=== PATIENT | female | born 1990 | race Caucasian/White ===

== ENCOUNTER 2021-04-01 09:03 | Emergency (ER) | payer MEDICAID, SELFPAY ==
[2021-04-01 09:05] VITALS: BP 121/76; PULSE 93; RESP 19; TEMP 37.1; O2SAT 98; BMI 21.1
--- NOTE | 2021-04-01 09:48 | HMH.EDUTC ---
[facility] [place] Disposition Clinical Impression: Viral syndrome, Encounter for laboratory testing for COVID-19 virus Disposition: Home, Self-Care Condition on Discharge: Good Instructions: DI for COVID-19 (Suspected or Confirmed ), Coronavirus Disease 2019, Preventing the Spread of Coronavirus Discharge Instructions Additional Instructions: *Monitor Temp, Over the counter Motrin or Tylenol as directed/as needed Tylenol every 4 hours and Motrin every 6 hours (as long as your family doctor has told you that you can take it) for fever or pain. and straight to ER if unable to lower temp less than 101.0 after medication given *Warm salt water gargles may help to soothe the throat *Throat Lozenges *Warm fluids like tea with honey may help to soothe the throat *Sleep elevated *Humidifier/Vaporizer *Flonase 2 sprays in each nostril daily but be aware that it may take 2-3 days before you notice improvement Your throat swab was sent for culture. Those results are typically sent to your primary care. Be sure to follow up in 2-3 days with your family doctor/primary care physician if no improvement so they can review those result and treat if necessary. If you don?t have a primary care doctor, I recommend you get one but in the mean time, you will have to return to a walk in clinic Follow up IMMEDIATELY for new or worsening symptoms or no Noticeable improvement over the next 48-72 hours. 911 for difficulty breathing or swallowing You were tested for today for COVID19 your test result should be back in the next 24-48 hours, you may call to the [facility] to see if your test results are back in the next 48 hours [phone] [facility] hours are 9am-9pm You was given a handout with instructions for Self Quarantine and Self isolation for while you wait on test results and what to do if they are positive If you are positive the Health Dept will be contacting you also Make sure to take your Vitamins Vit. C Vit D and Zinc if you can take them Prescriptions: Fluticasone Propionate [Flonase 50mcg nasal spray 16gm] 1 spr NS DAILY #1 ml Transmission Status: Pending to [facility] #[id number] Referrals: Kofi Cain [Primary Care Provider] - As needed Forms: Work/School Release Time of Disposition: 09:53 Medical Decision Making - Miguel Inquiry Pt receiving controlled substance: No Miguel was queried for this patient: No Vital Signs: 04/01/21 09:05 Temperature 98.7 F Temperature Source Oral Pulse Rate [Right Brachial] 93 H Respiratory Rate 19 Blood Pressure [Right Arm] 121/76 Blood Pressure Mean [Right Arm] 91 Blood Pressure Source [Right Arm] Automatic Cuff Blood Pressure Position [Right Arm] Sitting 02 Sat by Pulse Oximetry 98 Oxygen Delivery Method Room Air Orders (Tests/Meds): ORDERS Category Date Time Status Covid-19 Nasal PCR ([facility]) Routine Lab 04/01/21 09:24 Received [facility] [place] HPI - General Stated complaint: Covid test Time Seen by Provider: 04/01/21 09:48 Mode of Arrival: Ambulatory Source of Information: Patient Limitations: No Limitations Description of Symptoms (Recalled from Triage Doc. by RN): PATIENT C/O FEVER, SORE THROAT, LOSS OF TASTE, AND MUSCLE ACHES X 3 DAYS. EXPOSED TO COVID RECENTLY HEENT Symptoms (Recalled from RN notes): Yes Resp Symptoms (Recalled from RN notes): No Skin Symptoms (Recalled from RN notes): No MS Symptoms (Recalled from RN notes): No Functional Status (Recalled from RN notes): WNL - History of Present Illness Provider Complaint: Patient state that she has not felt well for about 3 days State that she has been having body aches, chills, fever, sore throat and today loss of taste States that she feels like her ears are full States that coworker is having same symptoms and tested for COVID yesterday but her results isnt back yet - Related Data Previous Rx's Medication Instructions Recorded Phenazopyridine HCl [Pyridium 200 pow PO TID #6 tab 08/03/19 200mg Tablet] Sulfamethoxazole/Trimethopri
[2021-04-01 09:55] LABS: UTC Strep Screen (Rapid) Negative (Negative)
[2021-04-01 10:00] VITALS: BP 121/76; PULSE 93; RESP 19; TEMP 37.1; O2SAT 98
== END 2021-04-01 10:04 | disposition home or self-care (01) ==
PROVIDERS: Emergency Provider Nurse Practitioner; PCP Pediatrics
DX: B34.9 Viral infection, unspecified (principal); Z20.822 Contact with and (suspected) exposure to COVID-19; F17.210 Nicotine dependence, cigarettes, uncomplicated
CPT/HCPCS: 87880; 99203; G0463; U0003

== ENCOUNTER 2023-08-21 09:50 | Emergency (ER) | payer MEDICAID, SELFPAY ==
[2023-08-21 10:00] VITALS: BP 131/88; PULSE 68; RESP 18; TEMP 36.9; O2SAT 98; BMI 24.1
[2023-08-21 10:21] LABS: UTC Influenza A Antigen Negative (Negative)
[2023-08-21 10:22] LABS: UTC Influenza B Antigen Positive (Negative)
--- NOTE | 2023-08-21 10:29 | ED_ITS ---
Discharge Plan Disposition Patient Disposition: Home, Self-Care Condition: Good Referrals Follow up/Referrals: Kofi Cain [Primary Care Provider] - See instructions Activity Restrictions/Add. Instructions Additional Instructions/Restrictions: * You elected not to take Tamiflu, some OTC cold medications may help with symptoms, also use Humidifer/vaporizer it may help with your breathing * Lots of rest * Increase Fluids water, Gatorade, powerade, pedialyte,if /toddler/child * Alternate Tylenol and / or ibuprofen as discussed for fever, aches, chills Follow up IMMEDIATELY with your family doctor for new or worsening Symptoms OR no noticeable improvement over the next 48-72 hours, 911 for difficulty or breathing * You or your child area contagious until no fever, aches, chills for 24 hours with medication for symptoms * Help Prevent the spread of influenza: * ?Wash your hands often. Use soap and water. Wash your hands after you use the bathroom, change a child's diapers, or sneeze. Wash your hands before you prepare or eat food. Use gel hand cleanser that has 60% alcohol, when soap and water are not available. Do not touch your eyes, nose, or mouth unless you have washed your hands first. * Cover your mouth when you sneeze or cough. Cough into a tissue or the bend of your arm. If you use a tissue, throw it away immediately and wash your hands. * Clean shared items with a germ-killing screen cleaner. Clean table surfaces, doorknobs, and light switches. Do not share towels, silverware, and dishes with people who are sick. Wash bed sheets, towels, silverware, and dishes with soap and water. * Wear a mask over your mouth and nose if you are sick. The face mask may help protect others from becoming infected with the flu. Wear the mask when in common areas of your home or if you seek care with a healthcare provider. * Stay away from others if you are sick. Stay at home until 24 hours after your fever and symptoms are gone. Clinical Impressions Clinical Impression: Influenza Stand Alone Forms Stand Alone Forms: Work/School Release Instructions Patient Instructions: DI for Influenza -- Adult, Influenza Discharge ED Provider: Cathy Mckinney [facility] General Stated complaint: fever, body aches, cough Mode of Arrival: Ambulatory Source of Information: Patient Limitations: No Limitations Time Seen by Provider: 08/21/23 10:29 Description of Symptoms (Recalled from Triage Doc. by RN): PATIENT C/O FEVER, CHILLS, COUGH, BODY ACHES, AND TROUBLE BREATHING WHEN LYING FLAT X 2 DAYS HEENT Symptoms (Recalled from RN notes): No Resp Symptoms (Recalled from RN notes): Yes Skin Symptoms (Recalled from RN notes): No MS Symptoms (Recalled from RN notes): No Functional Status (Recalled from RN notes): WNL History of Present Illness Provider Complaint: Patient states that she has been having fever, chills, body aches, and when she lays flat she feels like she cant breath very well at times but when she is sitting up in the recliner she doesnt feel this way States that she feels like she has the flu Related Data Allergies Allergy/AdvReac Type Severity Reaction Status Date / Time No Known Allergies Allergy Verified 04/01/21 09:46 Worker's Comp Is this a Worker's Comp case?: No [facility] Disclaimer: The information contained in this section may have been updated after the patient was seen, as this information can be updated by other users. Medical History (Updated 08/21/23 @ 10:39 by Cathy Mckinney APRN) Asthma Surgical History (Updated 08/21/23 @ 10:12 by Arlyn Mckenzie RN) History of section Social History Smoking Status: Current every day smoker tobacco type: cigarettes packs per day: 1 alcohol intake: never current occupational status: other Travel in the last 8 weeks: None ROS Obtained: Yes All systems reviewed & no additional complaints except as documented and Yes Systems reviewed as appropriate & no additional complaints except as documented Constitutional Constitutional: Reports system reviewed and no additional complaints, except as documented, Reports as per HPI, Reports body ache, Reports chills, Reports fatigue, Reports fever(s) and Reports headache(s) ENT Ears, Nose, Mouth, and Throat: Reports system reviewed and no additional complaints, except as documented, Reports as per HPI, Reports headache(s), Reports nasal congestion and Reports nasal discharge Cardiovascular Cardiovascular: Reports system reviewed and no additional complaints, except as documented and Reports as per HPI Respiratory Respiratory: Reports system reviewed and no additional complaints, except as documented, Reports as per HPI and Reports other (feels SOA at times when laying flat) Gastrointestinal Gastrointestingal: Reports system reviewed and no additional complaints, except as documented and as per HPI Neurologic Neurologic: Reports headache(s) Endocrine Endocrine: Reports fatigue Physical Exam General General appearance: alert and in no apparent distress ENT ENT exam: Present mucous membranes moist Expanded ENT Exam Nose exam: Present other (clear drainage); Absent sinus tenderness Throat exam: Present normal inspection Respiratory Respiratory exam: Present normal lung sounds bilaterally; Absent respiratory distress or wheezes Cardiovascular Cardiovascular exam: Present regular rate, normal rhythm and normal heart sounds Neurological Exam Neurological exam: Present alert, oriented X3 and normal gait Medical Decision Making Miguel Inquiry Pt receiving controlled substance: No Miguel was queried for this patient: No Vital Signs: 08/21/23 10:00 Temperature 98.4 F Temperature Source Oral Pulse Rate [Right Brachial] 68 Respiratory Rate 18 Blood Pressure [Right Arm] 131/88 Blood Pressure Mean [Right Arm] 102 Blood Pressure Source [Right Arm] Automatic Cuff Blood Pressure Position [Right Arm] Sitting 02 Sat by Pulse Oximetry 98 Oxygen Delivery Method Room Air Lab Data Lab results reviewed: Yes I reviewed the patient's lab results. Lab Results 08/21/23 10:16: Influenza Type A Ag Negative, Influenza Type B Ag Positive A
[2023-08-21 10:40] VITALS: BP 131/88; PULSE 68; RESP 18; TEMP 36.9; O2SAT 98
== END 2023-08-21 10:46 | disposition home or self-care (01) ==
PROVIDERS: Emergency Provider Nurse Practitioner; PCP Pediatrics
DX: J10.1 Influenza due to other identified influenza virus with other respiratory manifestations (principal); R50.9 Fever, unspecified; R51.9 Headache, unspecified; R05.9 Cough, unspecified; R53.83 Other fatigue; M79.18 Myalgia, other site; F17.210 Nicotine dependence, cigarettes, uncomplicated; J45.909 Unspecified asthma, uncomplicated
CPT/HCPCS: 87804; 99212; 99214; G0463